=== PATIENT | male | born 1945 | race Caucasian/White ===

== ENCOUNTER 2023-12-06 12:29 | Emergency (ER) | payer MEDICARE, OTHER ==
[~2023-12-06] VITALS: Ht 167.6 cm; Wt 56.8 kg
[2023-12-06] MEDS ORDERED: OLAN2.5T29 PO (12:47)
[2023-12-06] MEDS ORDERED: 0.9% SODIUM CHLORIDE 10 ML SYRINGE IVP PRN (15:00)
[2023-12-06] MEDS: VANCOMYCIN 1GM/WATER(PEG/NADA) 200 ML IV ONE (15:20)
[2023-12-06] MEDS: SODIUM CHLORIDE 0.9% 1,150 ML IV ONE (15:20)
[2023-12-06 15:29] LABS: BASOPHILS % (AUTO) 1.1 % (0.0-2.0); EOSINOPHILS % (AUTO) 0.2 % (1.0-6.0); HEMATOCRIT 28.7 % (41-53); LYMPHOCYTES # (AUTO) 0.7 K/uL (1.0-4.8); LYMPHOCYTES % (AUTO) 36.8 % (22.0-44.0); MEAN CORPUSCULAR HEMOGLOBIN 20.5 pg (26.0-34.0); MEAN CORPUSCULAR HGB CONC 31.3 G/dL (31.0-37.0); MEAN CORPUSCULAR VOLUME 66 fL (80-100); MONOCYTES # (AUTO) 0.3 K/uL (0.1-1.0); MONOCYTES % (AUTO) 16.3 % (2.0-9.0); NEUTROPHILS # (AUTO) 0.9 K/uL (1.8-7.7); NEUTROPHILS % (AUTO) 45.6 % (40.0-70.0); PLATELET COUNT (AUTO) 90 K/uL (150-450); PROTHROMBIN TIME 10.8 SEC (9.4-11.6); RED BLOOD CELL COUNT(AUTO) 4.38 MIL/uL (4.50-5.90); RED CELL DISTRIBUTION WIDTH 18.2 % (11.5-14.5)
[2023-12-06 15:31] LABS: ANION GAP 10 mmol/L (8-16); CALCIUM, TOTAL 9.2 mg/dL (8.8-10.5); CARBON DIOXIDE 27 mmol/L (22-29); CHLORIDE 104 mmol/L (98-107); CREATININE 0.87 mg/dL (0.60-1.30); GLOMERULAR FILTR. RATE CALC > 60 mL/min (>60); GLUCOSE,RANDOM 113 mg/dL (70-110); POTASSIUM 3.4 mmol/L (3.5-5.1); SODIUM SERUM 141 mmol/L (136-145); UREA NITROGEN, BLOOD 9 mg/dL (7-18)
[2023-12-06 15:36] LABS: ALANINE AMINOTRANSFERASE 27 U/L (12-78); ALBUMIN 4.3 g/dL (3.4-5.0); ALKALINE PHOSPHATASE 83 U/L (46-116); ASPARTATE AMINOTRANSFERASE 27 U/L (15-37); BILIRUBIN,TOTAL 1.7 mg/dL (0.1-1.0); TOTAL PROTEIN, SERUM 7.2 g/dL (6.4-8.2)
[2023-12-06 15:39] LABS: LACTIC ACID 1.4 mmol/L (0.4-2.0)
[2023-12-06 15:48] LABS: RBC MORPHOLOGY COMMENT ABNORMAL RBC MORPH
[2023-12-06] MEDS ORDERED: IOHEXOL 350 MG/ML 100 ML VIAL ONE (15:58)
[2023-12-06] MEDS ORDERED: SODIUM CHLORIDE 0.9% 100 ML ONE (15:58)
[2023-12-06] MEDS ORDERED: CLIN-142 PO (18:01)
[2023-12-06 18:05] VITALS: BP 121/68; PULSE 88; RESP 18; TEMP 98.1; O2SAT 99
== END 2023-12-06 19:05 | disposition left against medical advice (07) ==
LOC: EMS 12:30
DX: L03.116 Cellulitis of left lower limb (principal)
CPT/HCPCS: 99285; 96365; 73701; 71045; 80053; 83605; 85025; 85610; 87040; 36415; 93005; 84145; Q9967; J7050; J3490